=== PATIENT | female | born 1985 | race Caucasian/White ===

== ENCOUNTER 2022-11-17 09:02 | Outpatient (OUT) | payer BC, SELFPAY ==
--- NOTE | 2022-11-17 09:22 | XR_ITS ---
The [address] [address] Patient Name: GENARO CHURCH MRN: [id number] date: 1985 Sex: F Assigned Patient Location: [facility] Current Patient Location: [facility] Accession/Order Number: [id number] Exam Date: 11/17/2022 09:36 Report Date: 11/18/2022 16:47 At the request of: RADHA FISCHER Procedure: XR cervical spine 5V EXAMINATION: XR cervical spine 5V HISTORY: Neck pain M54.2 ; acute pain left side base of neck COMPARISON: No relevant comparison available. FINDINGS: BONES: Mild grade 1 anterolisthesis of C2 on 3. No fracture, bone lesion, or facet joint disruption. DISC SPACES: No significant disc height narrowing, subluxation, or endplate abnormality. PARASPINOUS: Negative. No paraspinous abnormality is seen. OTHER: Negative. IMPRESSION: 1. Mild grade 1 anterolisthesis of C2 on 3 and; positioning versus muscle spasm. 2. No appreciable significant degenerative changes or fracture. Electronically authenticated by: KEITH TRENT Date: 11/18/2022 16:47
== END 2022-11-17 09:03 | disposition home or self-care (01) ==
LOC: RAD 09:06
PROVIDERS: PCP Family Medicine; Visit Provider Nurse Practitioner
DX: M54.2 Cervicalgia (principal)
CPT/HCPCS: 72050

== ENCOUNTER 2022-11-29 06:51 | Outpatient (OUT) | payer BC, SELFPAY ==
--- NOTE | 2022-11-29 06:55 | US_ITS ---
[address] [address] Patient Name: GENARO CHURCH MRN: [id number] date: 1985 Sex: F Assigned Patient Location: US Current Patient Location: US Accession/Order Number: [id number] Exam Date: 11/29/2022 07:00 Report Date: 11/29/2022 11:19 At the request of: RADHA FISCHER Procedure: US thyroid EXAMINATION: US thyroid HISTORY: Weight Loss R63.4, Thyrotoxicosis E05.91 COMPARISON: No relevant comparison available. FINDINGS: RIGHT LOBE: Heterogeneous echotexture. Contains a 7 x 6 x 3 mm TR 4 nodule within inferior pole. Lobe size: 4.9 x 1.3 x 1.3 cm LEFT LOBE: Heterogeneous echotexture. Lobe size: 3.9 x 1.2 x 1.1 cm ISTHMUS: Heterogeneous echotexture. Thickness: 2 mm IMPRESSION: 1. Heterogeneous thyroid gland; nonspecific. 2. 7 mm TR 4 nodule within right lobe. Consider follow-up imaging in one-2 years. TR4 (moderately suspicious): If > 1.0 cm Follow-up ultrasound in 1, 2, 3, and 5 years. If > 1.5 cm fine needle aspiration (FNA). Electronically authenticated by: KEITH TRENT Date: 11/29/2022 11:19
--- NOTE | 2022-11-29 06:55 | US_ITS ---
The [address] [address] Patient Name: GENARO CHURCH MRN: [id number] date: 1985 Sex: F Assigned Patient Location: US Current Patient Location: US Accession/Order Number: [id number] Exam Date: 11/29/2022 07:00 Report Date: 11/29/2022 08:09 At the request of: RADHA FISCHER Procedure: US abdomen complete EXAM: US abdomen complete HISTORY: Elevated Liver Enzyme R74.8, Weight Loss R63.4 COMPARISON: Right upper quadrant ultrasound 11/12/2022.. TECHNIQUE: Real-time complete abdomen ultrasound. Findings: The visualized portions of the aorta and IVC are unremarkable. Evaluation of the pancreas is limited due to overlying bowel gas. The visualized portions are unremarkable. Unremarkable hepatic parenchymal echotexture. Within the right hepatic lobe there is a hypoechoic 2.1 x 1.1 x 2.0 cm mass. This measures 1.8 x 1.2 x 1.7 cm on the prior ultrasound. The main portal vein is patent and demonstrates hepatopedal flow. The gallbladder is fluid-filled and unremarkable without evidence of stones, wall thickening or pericholecystic fluid. The technologist reports a negative sonographic Pedro's sign. No biliary ductal dilatation. The common bile duct measures 1.2 cm. The right and left kidneys measure 10.4 and 11.0 cm. Good corticomedullary differentiation bilaterally. There are multiple echogenic foci within the right kidney which may relate to nonobstructing stones. No renal collecting system dilatation bilaterally. No focal mass or perinephric fluid collection. The spleen is not enlarged measuring 11.0 cm and is unremarkable. No free abdominal fluid. Unremarkable bladder. IMPRESSION: 1. No significant interval growth in the previously identified right hepatic lobe mass. Electronically authenticated by: NOHEMI RIBEIRO Date: 11/29/2022 08:09
== END 2022-11-29 06:52 ==
LOC: US 06:52
PROVIDERS: PCP Family Medicine; Visit Provider Nurse Practitioner
DX: R74.8 Abnormal levels of other serum enzymes (principal); R63.4 Abnormal weight loss; E05.91 Thyrotoxicosis, unspecified with thyrotoxic crisis or storm
CPT/HCPCS: 76536; 76700

== ENCOUNTER 2022-12-06 19:08 | Emergency (ER) | payer BC, SELFPAY ==
[2022-12-06 19:16] VITALS: BP 192/129; PULSE 94; RESP 18; TEMP 36.8; O2SAT 100; BMI 22.0
--- NOTE | 2022-12-06 19:44 | US_ITS ---
The [address] [address] Patient Name: GENARO CHURCH MRN: [id number] date: 1985 Sex: F Assigned Patient Location: ED.MAIN Current Patient Location: ER Accession/Order Number: [id number] Exam Date: 12/06/2022 20:00 Report Date: 12/06/2022 20:45 At the request of: AZ GARDUNO Procedure: US right upper quadrant EXAM: Abdominal ultrasound limited CLINICAL INDICATION: RUQ pain. TECHNIQUE: Grayscale and color Doppler imaging was performed of the right upper quadrant abdomen. FINDINGS: Liver: Normal hepatic echotexture. Hypoechoic lesion in the right hepatic lobe measures 2.2 x 1.2 cm. No hepatomegaly. No abnormal hepatic masses. Portal and hepatic veins are grossly patent. Gallbladder: No cholelithiasis. No gallbladder wall thickening. No pericholecystic fluid. No evidence of sonographic Pedro's sign noted by the contact center team lead. Nondilated gallbladder. Biliary: No intrahepatic biliary ductal dilation. Common bile duct measures 3 mm. Kidneys: No right hydronephrosis. Right calyceal echogenic focus measuring up to 3 mm. No right renal masses. Right kidney measures 11.0 cm length. Aorta/IVC: Patent and normal caliber where visualized. No ascites. IMPRESSION: 1. Right hepatic indeterminate hypoechoic lesion. Recommend follow-up evaluation with liver protocol CT or MRI. 2. Right nephrolithiasis. Electronically authenticated by: LINDA DUARTE Date: 12/06/2022 20:45
--- NOTE | 2022-12-06 19:47 | ED_ITS ---
HPI - Abdominal Pain General Chief Complaint: Abdominal Pain Stated Complaint: ABDOMINAL PAIN, Time Seen by Provider: 12/06/22 19:29 Source: patient Mode of arrival: walk-in Limitations: no limitations History of Present Illness HPI narrative: Patient is a 37-year-old female who presents to the emergency department for the evaluation of right upper quadrant and epigastric pain. Patient was recently admitted to this facility for dysfunction of her thyroid enzymes as well as elevated liver enzymes and hypertensive urgency. She was transferred to [facility] and evaluated by gastrointestinal specialist, her transaminitis improved without any significant intervention, she had multiple imaging studies but no surgeries or procedures and was discharged home to follow-up with endocrinology and rheumatology. She was diagnosed with a suspected autoimmune disorder. She has been having ongoing dizziness with no chest pain, shortness of breath, fevers, vomiting or diarrhea. She presents to the emergency department tonight for right upper quadrant and epigastric discomfort that developed one hour ago. It was not associated with eating. She has no known history of gallstones or pancreatitis. No medications were taken prior to arrival. She has a history of appendectomy and tubal ligation. Related Data Home Medications Medication Instructions Recorded Confirmed atenolol 50 mg tablet 50 mg PO Q24H 12/06/22 12/06/22 levothyroxine 112 mcg tablet 112 mcg PO DAILY 12/06/22 12/06/22 Previous Rx's Medication Instructions Recorded dicyclomine 20 mg tablet 20 mg PO QID PRN abdominal pain 12/06/22 #12 tabs famotidine 20 mg tablet (Pepcid) 20 mg PO BID #10 tabs 12/06/22 ondansetron 4 mg disintegrating 4 mg PO Q6H PRN nausea and 12/06/22 tablet vomiting #12 tabs Allergies Allergy/AdvReac Type Severity Reaction Status Date / Time No Known Drug Allergies Allergy Verified 12/06/22 19:21 Review of Systems ROS Constitutional Denies: fever or chills Ears, nose, mouth, and throat Denies: neck pain Cardiovascular Denies: chest pain Respiratory Denies: shortness of breath or cough Gastrointestinal Reports: abdominal pain; Denies: nausea or vomiting Musculoskeletal Denies: back pain Neurological Denies: headache PFSH PFSH Social History Smoking status: Never smoker Exam Narrative Exam Narrative: Gen.: Awake, alert, in no distress Head: Normocephalic, atraumatic ENT: Moist mucous membranes Respiratory: No respiratory distress, lungs clear bilaterally Cardio: Regular rate and rhythm Gastrointestinal: Abdomen is soft, nondistended. Tender in the epigastrium and moderately tender in the right upper quadrant, no guarding or rebound Extremities: Moves extremities equally, no injuries noted Psych: Normal mood and affect Neuro: No focal neuro deficit Skin: Warm, dry, intact Constitutional Vital Signs - 24 hr 12/06/22 19:16 12/06/22 20:45 12/06/22 21:30 Temperature 98.2 F Pulse Rate [Monitor Left] 94 H 77 68 Respiratory Rate 18 14 16 Blood Pressure [Left Arm] 192/129 H 180/106 H Pulse Oximetry 100 98 100 Oxygen Delivery Method Room Air Room Air Room Air 12/06/22 22:59 Temperature Pulse Rate [Monitor Left] 70 Respiratory Rate 16 Blood Pressure [Left Arm] 189/120 H Pulse Oximetry 99 Oxygen Delivery Method Room Air Course Vital Signs Vital signs: Vital Signs Temperature 98.2 F 12/06/22 19:16 Pulse Rate 94 H 12/06/22 19:16 Respiratory Rate 18 12/06/22 19:16 Blood Pressure 192/129 H 12/06/22 19:16 Pulse Oximetry 100 12/06/22 19:16 Oxygen Delivery Method Room Air 12/06/22 19:16 Temperature 98.2 F 12/06/22 19:16 Pulse Rate 70 12/06/22 22:59 Respiratory Rate 16 12/06/22 22:59 Blood Pressure 189/120 H 12/06/22 22:59 Pulse Oximetry 99 12/06/22 22:59 Oxygen Delivery Method Room Air 12/06/22 22:59 MDM - Abdominal Pain MDM Narrative Medical decision making narrative: Patient was medicated with IV fluids, Dilaudid, Zofran, Pepcid with improvement of pain. She did have some improvement of her blood pressure, patient is chronically hypertensive and has had consistent blood pressures in the 180s to 190s systolic on presentation to the Emergency Room. Her bilirubin and LFTs are elevated, although stable to improved from previous visit on 11/11/22. Her thyroid-stimulating hormone is significantly elevated as well. 2200: Gastrointestinal specialist at [facility] was contacted and we are awaiting a call back. After discussion with the transfer line, patient was apparently not seen by gastrointestinal specialist on her most recent admission so we will discuss the case with gastrointestinal attending concession stand attendant. 2223: [facility] transfer line called back to state that the gastrointestinal nurse practitioner on-call refused a consult as the patient is not currently admitted to their facility. Patient was reevaluated by attending physician, she is clinically improved at this time and would like to be discharged home. We will provide her with gastrointestinal follow-up as we do not have any specialist at this facility and she was given strict instructions for return to the emergency department if symptoms change or worsen. She will be discharged home with Caterina Love Pepcid. Patient was also made aware of her elevated thyroid-stimulating hormone, she does have an endocrine appointment upcoming for reevaluation of her thyroid. She was told by [facility] not to take any of her thyroid medications until seen by the specialist. Medical Records Attestation: I reviewed the patient's medical records. Lab Data Attestation: I reviewed the patient's lab results. Labs: Lab Results 12/06/22 12/06/22 12/06/22 Range/Units 19:50 19:54 20:16 WBC 7.5 (4.0-11.0) 10^3/uL RBC 4.47 (4.20-5.40) 10^6/uL Hgb 14.7 (12.0-16.0) g/dL Hct 42.7 (36.0-48.0) % MCV 95.5 (81.0-99.0) fL MCH 32.9 (26.7-34.0) pg MCHC 34.4 (29.9-35.2) g/dL RDW 12.7 (11.0-15.0) % Plt Count 249 (150-450) 10^3/uL MPV 9.8 (9.5-13.5) fL Neut % (Auto) 63.8 (43.0-75.0) % Lymph % (Auto) 24.9 (20.5-60.0) % [place] % (Auto) 7.8 (1.7-12.0) % Eos % (Auto) 2.1 (0.9-7.0) % Baso % (Auto) 0.7 (0.2-2.0) % Neut # (Auto) 4.8 (1.4-6.5) 10^3/uL Lymph # (Auto) 1.9 (1.2-3.8) 10^3/uL [place] # (Auto) 0.6 (0.3-0.8) 10^3/uL Eos # (Auto) 0.2 (0.0-0.7) 10^3/uL Baso # (Auto) 0.1 (0.0-0.1) 10^3/uL Abs Immat Gran (auto) 0.05 H (0.00-0.03) 10^3/uL Imm/Tot Granulo (auto) 0.7 H (0.0-0.5) % Sodium 136 (136-145) mmol/L Potassium 3.6 (3.5-5.1) mmol/L Chloride 100 (98-107) mmol/L Carbon Dioxide 25.8 (21.0-32.0) mmol/L Anion Gap 13.8 BUN 9.0 (7.0-18.0) mg/dL Creatinine 0.79 (0.55-1.02) mg/dL Est GFR ( Amer) >60 (>=60) Est GFR (Non-Af Amer) >60 (>=60) BUN/Creatinine Ratio 11.4 Glucose 88 (74-106) mg/dL Calcium 9.2 (8.5-10.1) mg/dL Total Bilirubin 1.8 H (0.2-1.0) mg/dL Direct Bilirubin 0.5 H (0.0-0.2) mg/dL AST 270 H (15-37) U/L ALT 587 H* (14-59) U/L Alkaline Phosphatase 81 (46-116) U/L Total Protein 7.5 (6.4-8.2) g/dL Albumin 4.0 (3.4-5.0) g/dL Globulin 3.5 g/dL Albumin/Globulin Ratio 1.1 Lipase 98.0 (73.0-393.0) U/L TSH 110.563 H (0.358-3.740) uIU/mL Urine Color Lt. yellow (YELLOW) Urine Clarity Clear (CLEAR) Urine pH 6.0 (5.0-9.0) Ur Specific [place] 1.010 (1.005-1.025) Urine Protein Negative (NEG/TRACE) mg/dL Urine Glucose (UA) Negative (NEGATIVE) mg/dL Urine Ketones Negative (NEGATIVE) mg/dL Urine Occult Blood Large A (NEGATIVE) Urine Nitrite Negative (NEGATIVE) Urine Bilirubin Negative (NEGATIVE) Urine Urobilinogen 0.2 (0.2-1.0) EU/dL Ur Leukocyte Esterase Trace A (NEGATIVE) Urine RBC 5-10 A (0-2) #/HPF Urine WBC 2-5 A (NONE SEEN) #/HPF Ur Squamous Epith Cells Few A (NONE/RARE) #/LPF Urine Crystals Seen A (None Seen) #/HPF Uric Acid Crystals Rare Urine Bacteria None seen (NONE SEEN) #/HPF Urine Casts None seen (NONE SEEN) #/LPF Urine Mucus None seen (NONE SEEN) Ur Culture Indicated? No Urine HCG, Qual Negative (NEGATIVE) Imaging Data US - abdomen: Attestation: I have reviewed the pertinent imaging results. Radiologist's impression: Procedure: US right upper quadrant EXAM: Abdominal ultrasound limited CLINICAL INDICATION: RUQ pain. TECHNIQUE: Grayscale and color Doppler imaging was performed of the right upper quadrant abdomen. FINDINGS: Liver: Normal hepatic echotexture. Hypoechoic lesion in the right hepatic lobe measures 2.2 x 1.2 cm. No hepatomegaly. No abnormal hepatic masses. Portal and hepatic veins are grossly patent. Gallbladder: No cholelithiasis. No gallbladder wall thickening. No pericholecystic fluid. No evidence of sonographic Pedro's sign noted by the switchboard receptionist. Nondilated gallbladder. Biliary: No intrahepatic biliary ductal dilation. Common bile duct measures 3 mm. Kidneys: No right hydronephrosis. Right calyceal echogenic focus measuring up to 3 mm. No right renal masses. Right kidney measures 11.0 cm length. Aorta/IVC: Patent and normal caliber where visualized. No ascites. IMPRESSION: 1. Right hepatic indeterminate hypoechoic lesion. Recommend follow-up evaluation with liver protocol CT or MRI. 2. Right nephrolithiasis. Electronically authenticated by: LINDA DUARTE Date: 12/06/2022 20:45 Discharge Plan Discharge Chief Complaint: Abdominal Pain Clinical Impression: Transaminitis, Abdominal pain Patient Disposition: Home, Self-Care Time of Disposition Decision: 22:31 Condition: Fair Mode of Transportation: Private Vehicle Prescriptions / Home Meds: New dicyclomine 20 mg tablet 20 mg PO QID PRN (Reason: abdominal pain) Qty: 12 0RF ondansetron 4 mg tablet,disintegrating 4 mg PO Q6H PRN (Reason: nausea and vomiting) Qty: 12 0RF famotidine [Pepcid] 20 mg tablet 20 mg PO BID Qty: 10 0RF No Action atenolol 50 mg tablet 50 mg PO Q24H levothyroxine 112 mcg tablet 112 mcg PO DAILY Instructions: Acute Abdominal Pain (ED) Stand Alone Forms: Portal Instructions Referrals: RAYNA MUÑIZ [Primary Care Provider] - 1 week Discharge Date/Time: 12/06/22 23:04
[2022-12-06] MEDS: ONDANSETRON PF 4 MG/2 ML VIAL IV (20:02)
[2022-12-06] MEDS: 0.9 % SODIUM CHLORIDE 1,000 ML 999 ML IV (20:02)
[2022-12-06] MEDS: HYDROMORPHONE HCL 1 MG/ML CARTRIDGE IVP (20:02)
[2022-12-06] MEDS: FAMOTIDINE/PF 20 MG/2 ML VIAL IV (20:02)
[2022-12-06 20:08] LABS: Basophils Absolute Auto 0.1 10^3/uL (0.0-0.1); Basophils Percent Auto 0.7 % (0.2-2.0); Eosinophils Absolute Auto 0.2 10^3/uL (0.0-0.7); Eosinophils Percent Auto 2.1 % (0.9-7.0); Hematocrit 42.7 % (36.0-48.0); Hemoglobin 14.7 g/dL (12.0-16.0); Immature Granulocytes Abs Auto 0.05 10^3/uL (0.00-0.03); Immature Granulocytes Pct Auto 0.7 % (0.0-0.5); Lymphocytes Absolute Auto 1.9 10^3/uL (1.2-3.8); Lymphocytes Percent Auto 24.9 % (20.5-60.0); Mean Corpuscular HGB Conc 34.4 g/dL (29.9-35.2); Mean Corpuscular Hemoglobin 32.9 pg (26.7-34.0); Mean Corpuscular Volume 95.5 fL (81.0-99.0); Mean Platelet Volume 9.8 fL (9.5-13.5); Monocytes Absolute Auto 0.6 10^3/uL (0.3-0.8); Monocytes Percent Auto 7.8 % (1.7-12.0); Neutrophils Absolute Auto 4.8 10^3/uL (1.4-6.5); Neutrophils Percent Auto 63.8 % (43.0-75.0); Platelet Count 249 10^3/uL (150-450); Red Blood Count 4.47 10^6/uL (4.20-5.40); Red Cell Distribution Width 12.7 % (11.0-15.0); White Blood Count 7.5 10^3/uL (4.0-11.0)
[2022-12-06 20:11] LABS: Bilirubin Urine NEGATIVE (NEGATIVE); Blood Urine LARGE (NEGATIVE); Clarity Urine CLEAR (CLEAR); Color Urine LT. YELLOW (YELLOW); Glucose Urine UA NEGATIVE (NEGATIVE); Ketones Urine NEGATIVE (NEGATIVE); Leukocyte Esterase Urine TRACE (NEGATIVE); Nitrite Urine NEGATIVE (NEGATIVE); Protein Urine NEGATIVE (NEG/TRACE); Urobilinogen Urine 0.2 EU/dL (0.2-1.0)
[2022-12-06 20:12] LABS: HCG Qualitative Urine* NEGATIVE (NEGATIVE)
[2022-12-06 20:16] LABS: Urine Microscopic Indicated YES
[2022-12-06 20:18] LABS: Bacteria Urine NONE SEEN #/HPF (NONE SEEN); Mucus Urine NONE SEEN (NONE SEEN); Squamous Epithelial Cell Urine FEW #/LPF (NONE/RARE)
[2022-12-06 20:19] LABS: Cast Seen? NONE SEEN #/LPF (NONE SEEN); Crystals Seen? Seen #/HPF (None Seen); Uric Acid Crystals Urine RARE; Urine Culture Indicated NO
[2022-12-06 20:32] LABS: Albumin Globulin Ratio 1.1; Alkaline Phosphatase 81 U/L (46-116); Anion Gap 13.8; Aspartate Amino Transferase 270 U/L (15-37); BUN Creatinine Ratio 11.4; Bilirubin Total 1.8 mg/dL (0.2-1.0); Calcium 9.2 mg/dL (8.5-10.1); Carbon Dioxide 25.8 mmol/L (21.0-32.0); Chloride 100 mmol/L (98-107); Estimated GFR (African America >60 (>=60); Estimated GFR (Non-African Ame >60 (>=60); Globulin 3.5 g/dL; Glucose 88 mg/dL (74-106); Potassium 3.6 mmol/L (3.5-5.1); Sodium 136 mmol/L (136-145); Total Protein 7.5 g/dL (6.4-8.2)
[2022-12-06 20:36] LABS: Bilirubin Direct 0.5 mg/dL (0.0-0.2)
[2022-12-06 20:37] LABS: Alanine Aminotransferase 587 U/L (14-59)
[2022-12-06 20:45] VITALS: BP 180/106; PULSE 77; RESP 14; O2SAT 98
[2022-12-06 21:30] VITALS: PULSE 68; RESP 16; O2SAT 100
[2022-12-06 22:59] VITALS: BP 189/120; PULSE 70; RESP 16; O2SAT 99
== END 2022-12-06 23:04 | disposition home or self-care (01) ==
PROVIDERS: Physician Assistant; Emergency Provider Internal Medicine; PCP Family Medicine
DX: R10.9 Unspecified abdominal pain (principal); R74.01 Elevation of levels of liver transaminase levels; Z79.899 Other long term (current) drug therapy; Z79.890 Hormone replacement therapy
CPT/HCPCS: 36415; 76705; 80048; 80076; 81003; 81015; 83690; 84443; 84703; 85025; 96374; 96375; 99284; J1170

== ENCOUNTER 2022-12-16 07:41 | Outpatient (OUT) | payer BC, SELFPAY ==
--- NOTE | 2022-12-16 07:51 | MR_ITS ---
The [place] [id number] Patient Name: GENARO CHURCH MRN: [id number] date: 1985 Sex: F Assigned Patient Location: MRI Current Patient Location: MRI Accession/Order Number: [id number] Exam Date: 12/16/2022 08:00 Report Date: 12/19/2022 15:49 At the request of: RADHA FISCHER Procedure: MR abdomen wo/w con EXAM: MR abdomen wo/w con, 12/16/2022. COMPARISON STUDY: CT of the abdomen with and without contrast 11/12/2022. Right upper quadrant ultrasound 12/06/2022. TECHNIQUE: Coronal T2, axial T1 in and [id number], axial T2 before and after fat saturation and axial T1-weighted fat-saturated images were obtained following administration of intravenous contrast. Coronal T1 postcontrast fat-saturated images were obtained. HISTORY: Right upper quadrant pain, right hepatic lesion. FINDINGS: Heart size is normal. Spleen, pancreas, gallbladder, adrenals and kidneys demonstrate no acute abnormality. The liver does not appear to be cirrhotic. There is demonstration of a lesion within the anterior segmental right hepatic lobe. This is located posterolateral to the middle hepatic vein on image 15 of series 8 where it is mildly increased in T2 signal. This is mildly increased in T1 signal on the precontrast images. No gallstones, gallbladder wall thickening or pericholecystic fluid noted. Negative for biliary or pancreatic ductal dilatation. Aorta demonstrates normal caliber. The hypointensity of the lesion as seen on T1 in and [id number] imaging, image 15 of series 7. This is more difficult to visualize on the fat saturated precontrast T1-weighted images. On the portal venous phase postcontrast images a rounded well-defined hypervascular lesion is noted. This measures 1.6 x 1.6 cm, image #12 of series 14. Slightly delayed portal venous phase imaging in the coronal plane has lesion measuring at least 1.6 cm superior to inferior. This is unchanged in size. Limited postcontrast dynamic imaging was performed. Constipation is suggested. No significantly enlarged adenopathy or ascites. IMPRESSION: 1. Small hypervascular lesion within the anterior segment right hepatic lobe, 1.6 cm. This corresponds to the hypoechoic lesion seen on ultrasound study from 12/06/2022. This is not significantly changed in size compared to CT study from 11/12/2022. On precontrast imaging it is mildly T2 hyperintense and mildly T1 hypointense. Differential considerations include focal nodular hyperplasia versus adenoma. The latter is somewhat more likely. 2. Constipation. No acute intra-abdominal process otherwise identified. Electronically authenticated by: AAMIR GARNER Date: 12/19/2022 15:49
== END 2022-12-16 07:42 | disposition home or self-care (01) ==
LOC: MRI 07:41
PROVIDERS: PCP Family Medicine; Visit Provider Nurse Practitioner
DX: R10.11 Right upper quadrant pain (principal); K76.9 Liver disease, unspecified; K59.00 Constipation, unspecified
CPT/HCPCS: 74183; A9575

== ENCOUNTER 2022-12-22 09:22 | Outpatient (OUT) | payer BC, SELFPAY ==
[2022-12-22 09:48] LABS: Basophils Absolute Auto 0.1 10^3/uL (0.0-0.1); Basophils Percent Auto 1.1 % (0.2-2.0); Eosinophils Absolute Auto 0.2 10^3/uL (0.0-0.7); Eosinophils Percent Auto 3.4 % (0.9-7.0); Hematocrit 39.3 % (36.0-48.0); Hemoglobin 13.1 g/dL (12.0-16.0); Immature Granulocytes Abs Auto 0.05 10^3/uL (0.00-0.03); Immature Granulocytes Pct Auto 0.9 % (0.0-0.5); Lymphocytes Absolute Auto 1.5 10^3/uL (1.2-3.8); Mean Corpuscular HGB Conc 33.3 g/dL (29.9-35.2); Mean Corpuscular Hemoglobin 32.8 pg (26.7-34.0); Mean Corpuscular Volume 98.3 fL (81.0-99.0); Mean Platelet Volume 9.6 fL (9.5-13.5); Monocytes Absolute Auto 0.7 10^3/uL (0.3-0.8); Neutrophils Absolute Auto 2.8 10^3/uL (1.4-6.5); Neutrophils Percent Auto 52.6 % (43.0-75.0); Platelet Count 237 10^3/uL (150-450); Red Cell Distribution Width 13.5 % (11.0-15.0); White Blood Count 5.3 10^3/uL (4.0-11.0)
[2022-12-22 10:04] LABS: Estimated GFR (African America >60 (>=60); Estimated GFR (Non-African Ame >60 (>=60)
[2022-12-22 10:05] LABS: C Reactive Protein <0.2 mg/dL (<=1.0)
[2022-12-22 10:14] LABS: Erythrocyte Sedimentation Rate 5 mm/hr (<=20)
[2022-12-22 10:35] LABS: Bilirubin Urine NEGATIVE (NEGATIVE); Blood Urine NEGATIVE (NEGATIVE); Clarity Urine CLEAR (CLEAR); Color Urine YELLOW (YELLOW); Glucose Urine UA NEGATIVE (NEGATIVE); Ketones Urine NEGATIVE (NEGATIVE); Leukocyte Esterase Urine SMALL (NEGATIVE); Nitrite Urine NEGATIVE (NEGATIVE); Protein Urine NEGATIVE (NEG/TRACE); Specific Gravity Urine >=1.030 (1.005-1.025); pH Urine 5.5 (5.0-9.0)
[2022-12-22 10:44] LABS: Bacteria Urine NONE SEEN #/HPF (NONE SEEN); Crystals Seen? None Seen #/HPF (None Seen); Mucus Urine TRACE (NONE SEEN); RBC Urine 0-2 #/HPF (0-2); Squamous Epithelial Cell Urine MODERATE #/LPF (NONE/RARE)
[2022-12-22 10:45] LABS: Cast Seen? NONE SEEN #/LPF (NONE SEEN); Urine Culture Indicated NO
[2022-12-23 05:08] LABS: Complement C3, Serum 96 mg/dL (82-167); Complement C4, Serum 15 mg/dL (12-38)
[2022-12-23 15:08] LABS: Complement, Total (CH50) 52 U/mL (>41)
[2022-12-26 08:09] LABS: Antinuclear Antibodies, IFA Negative (.)
== END 2022-12-22 09:23 | disposition home or self-care (01) ==
PROVIDERS: PCP Family Medicine; Visit Provider Internal Medicine Rheumatology
DX: R76.0 Raised antibody titer (principal)
CPT/HCPCS: 36415; 81001; 82565; 85025; 85652; 86038; 86140; 86160; 86162; 86235

== ENCOUNTER 2022-12-26 21:45 | Outpatient (OUT) | payer BC, SELFPAY ==
[2022-12-29 15:10] LABS: Age Gdln ACOG Testing Note (.); HPV Aptima Negative (Negative); IGP, Aptima HPV, rfx 16/18,45 Note (.)
== END 2022-12-26 21:46 | disposition home or self-care (01) ==
LOC: LAB 21:52
PROVIDERS: PCP Family Medicine; Visit Provider Physician Assistant
DX: Z12.4 Encounter for screening for malignant neoplasm of cervix (principal); Z11.51 Encounter for screening for human papillomavirus (HPV)
CPT/HCPCS: 87624; G0145

== ENCOUNTER 2023-03-29 10:29 | Outpatient (OUT) | payer BC, SELFPAY ==
[2023-03-29 11:39] LABS: Free T3 2.72 pg/mL (2.18-3.98)
[2023-03-29 12:02] LABS: Free T4 0.89 ng/dL (0.76-1.46)
[2023-03-30 15:08] LABS: Thyroglobulin Antibody 3.1 IU/mL (0.0-0.9); Thyroid Peroxidase (TPO) Ab 189 IU/mL (0-34)
== END 2023-03-29 10:30 | disposition home or self-care (01) ==
LOC: LAB 10:30
PROVIDERS: PCP Family Medicine; Visit Provider Internal Medicine
DX: E03.9 Hypothyroidism, unspecified (principal); E55.9 Vitamin D deficiency, unspecified; E04.9 Nontoxic goiter, unspecified
CPT/HCPCS: 36415; 82306; 84439; 84443; 84481

== ENCOUNTER 2024-01-01 21:08 | Outpatient (REF) | payer BC, SELFPAY ==
[2024-01-04 11:09] LABS: Age Gdln ACOG Testing Note (.); HPV Aptima Negative (Negative); IGP, Aptima HPV, rfx 16/18,45 Note (.)
== END 2024-01-01 21:09 | disposition home or self-care (01) ==
LOC: LAB 21:08
PROVIDERS: PCP Family Medicine; Visit Provider Physician Assistant
DX: Z01.419 Encounter for gynecological examination (general) (routine) without abnormal findings (principal)
CPT/HCPCS: 88175